=== PATIENT | female | born 1970 | race Caucasian/White ===

== ENCOUNTER 2018-09-27 17:56 | Emergency (ER) | payer BC ==
[~2018-09-27] VITALS: Ht 154.9 cm; Wt 77.5 kg
[2018-09-27 18:29] VITALS: BP 149/74; PULSE 122; RESP 19; Ht 154.9 cm; Wt 77.5 kg
--- NOTE | 2018-09-27 20:27 | ERD ---
ER Documentation Chief Complaint Chief Complaint FEVER X1DAY WITH COUGH AND BODYACHES HPI 48-year-old female, presents to the emergency department, complaining of fever, cough and body aches. The symptoms started 1 day ago. She denies shortness of breath, no chest pain, no rashes, no abdominal pain. The patient also reports that one week ago she was called from her doctor's office and was told that she had a urinary tract infection. ROS All systems reviewed and are negative except as per history of present illness. Medications Home Meds Active Scripts Promethazine HCl/Codeine (Prometh-Codein 6.25-10 mg/5 ml) 5 Ml Syrup, 5 ML PO QHS PRN for COUGH, #60 ML Prov:PRESTON ELIZALDE MD 09/27/18 Acetaminophen* (Tylenol*) 325 Mg Tablet, 2 TAB PO Q6 PRN for PAIN AND OR ELEVATED TEMP, #20 TAB Prov:PRESTON ELIZALDE MD 09/27/18 Ibuprofen* (Motrin*) 400 Mg Tab, 400 MG PO Q6H PRN for PAIN AND OR ELEVATED TEMP, #30 TAB Prov:PRESTON ELIZALDE MD 09/27/18 Sulfamethoxazole/Trimethoprim* (Bactrim Ds* Tablet) 1 Each Tablet, 1 TAB PO BID, #14 TAB Prov:PRESTON ELIZALDE MD 09/27/18 Allergies Allergies: Coded Allergies: Penicillin G (Verified Allergy, Mild, RASHES, 11/19/07) PMhx/Soc Medical and Surgical Hx: pt denies Medical Hx, pt denies Surgical Hx Smoking Status: Never smoker FmHx Family History: No diabetes, No coronary disease Physical Exam Vitals Vital Signs Date Temp Pulse Resp B/P (MAP) Pulse Ox O2 O2 Flow FiO2 Time Delivery Rate 09/27/18 100.5 20:32 09/27/18 100.5 20:32 09/27/18 102.5 122 19 149/74 97 18:29 (99) Physical Exam Const: No acute distress Head: Atraumatic Eyes: Normal Conjunctiva ENT: Normal External Ears, Nose and Mouth. Neck: Full range of motion. No meningismus. Resp: Clear to auscultation bilaterally Cardio: Regular rate and rhythm, no murmurs Abd: Soft, non tender, non distended. Normal bowel sounds Skin: No petechiae or rashes Back: No midline or flank tenderness Ext: No cyanosis, or edema Neur: Awake and alert Psych: Normal Mood and Affect Results 24 hrs Current Medications Medications Dose Sig/Phil Start Time Status Last (Trade) Ordered Route PRN Stop Time Admin Dose Reason Admin Ibuprofen 400 mg ONCE ONCE 09/27/18 DC 09/27/18 (Motrin) PO 20:30 20:32 09/27/18 20:31 650 mg ONCE ONCE 09/27/18 DC 09/27/18 Acetaminophen PO 20:30 20:32 (Tylenol 09/27/18 20:31 Tab) Unable to obtain urine, the patient urinated before the encounter. Procedures/MDM Differential diagnosis include but not limited to: UTI, colitis, gastroenteritis, kidney stones, irritable bowel syndrome, inflammatory bowel syndrome, malabsorption syndrome, cholelithiasis, food intolerance, medication side effect, pancreatitis, diverticulitis, bowel obstruction. Low suspicion for acute abdomen Physical examination and clinical presentation consistent most likely with urinary tract infection and acute bronchitis. During the ED course the patient remained stable, no new complaints. Results and clinical impression discussed with patient who agrees with management. The patient is stable to be treated outpatient and will be discharged home, some side effects of prescribed medications (headache, rash, nausea, vomiting, diarrhea, drowsiness, habituation, bleeding, hypertension, interactions with other medications) were reviewed. The patient was instructed to follow up with the primary care provider in the next 48h. If symptoms persist, worsen or new symptoms develop, then patient should return to the ED immediately. Instructions explained and given directly by me to the patient with acknowledgment and demonstrated understanding. Disclaimer: Inadvertent spelling and grammatical errors are likely due to EHR/dictation software use and do not reflect on the overall quality of patient care. Also, please note that the electronic time recorded on this note does not necessarily reflect the actual time of the patient encounter. Departure Diagnosis: Primary Impression: Fever Additional Impressions: Cough UTI (urinary tract infection) Condition: Stable Additional Instructions: Thank you very much for allowing us to participate in your care. Your health and safety is our top priority at [facility]. The evaluation in the emergency department has been done to rule out an acute emergency, therefore, chronic conditions like malignancy or other diseases have not been evaluated; therefore, you need to follow up with a primary care provider in the next 48h. If symptoms persist, worsen or new symptoms develop, then patient should return to the ED immediately. Call your primary care doctor TOMORROW for an appointment during the next 2-4 days and bring all the information provided. Have prescriptions filled and follow precisely the directions on the label. If the symptoms get worse and your provider is unavailable, return to the Emergency Department immediately. PRESTON ELIZALDE MD Sep 27, 2018 20:27
[2018-09-27] MEDS ORDERED: ACETAMINOPHEN 325 MG TAB PO ONE (20:30)
[2018-09-27] MEDS ORDERED: SULF1TAB31 PO (20:30)
[2018-09-27] MEDS ORDERED: ACET325T33 PO (20:30)
[2018-09-27] MEDS ORDERED: PROM5SYR2 PO (20:30)
[2018-09-27] MEDS ORDERED: IBUPROFEN 200 MG TAB PO ONE (20:30)
[2018-09-27] MEDS ORDERED: IBUP-1561 PO (20:30)
== END 2018-09-27 21:05 | disposition home or self-care (01) ==
LOC: FTE 17:56
DX: N39.0 Urinary tract infection, site not specified (principal); R05 Cough
CPT/HCPCS: 99283